=== PATIENT | male | born 1940 | race Caucasian/White ===

== ENCOUNTER 2017-10-13 08:27 | Day surgery (SDC) | payer MEDICARE, OTHER ==
[~2017-10-13] VITALS: Ht 167.6 cm; Wt 93.4 kg
[~2017-10-13 08:27] MED LIST: ALLOPURINOL300 MG PO; DOXYCYCLINE HY100 MG PO; FISH OIL 1,0001 EAC3 PO; GINKGO60 MG PO; INDOMETHACIN25 MG PO; MAGNESIUM250 M1 PO; MELATONIN1 MG PO; METHYLPREDNISOLO4 M1 PO; METOPROLOL SUCC25 MG PO; METOPROLOL SUCC50 MG PO; WARFARIN SODIUM5 MG PO
--- NOTE | 2017-10-13 10:54 | NUR ---
10/13/17 1054 Yasmin Grady 1046 PATIENT ARRIVES TO PACU SLEEPING, AWAKENS WITH VERBAL STIMULI, DENIES PAIN OR NAUSEA, THEN BACK TO SLEEP. RESP EVEN AND UNLABORED, NC AT 3 LITERS.
--- NOTE | 2017-10-16 08:29 | OR ---
[facility] [address] [place], [place] [address] Signed DATE OF OPERATION: 10/13/2017 SURGEON: Alisa Tirado MD PREOPERATIVE DIAGNOSES: 1. Personal history of multiple colonic polyps. 2. Moderate internal and external hemorrhoids. 3. Moderate diverticulosis. 4. Father with colon cancer, age 87. POSTOPERATIVE DIAGNOSES: 1. Polyps at 8 cm x7, 10 cm x4, 55 cm x1, proximal transverse colon x1, mid right colon x4, cecum x3, and hepatic flexure x1. 2. Moderate internal and external hemorrhoids. 3. Moderate sigmoid diverticulosis. PROCEDURE: Colonoscopy with hot biopsy and snare polypectomy at 55 cm. ESTIMATED BLOOD LOSS: None. INDICATIONS: Pierre is a 77-year-old gentleman, who has a personal history of multiple colonic polyps removed over multiple colonoscopies. He is also known to have sigmoid diverticulosis along with internal and external hemorrhoids. In addition, his father was diagnosed with colon cancer at age 87. Pierre continues to do well. He does have atrial fibrillation for which he takes Coumadin. Otherwise, he has good muscle mass and he still has good functional status. In the office, I explained to Pierre it is probably wylie to go ahead and repeat his colonoscopy at his age given the above findings. I gave him a pamphlet on colonoscopy. We looked at that together along with the risks including, but not limited to, gas bloating, crampy abdominal pain, bleeding, perforation, requiring surgery, and missed diagnosis. We also reviewed the written instructions for the bowel prep. We had him hold the Coumadin 4 days prior to the procedure. In addition, he understands the need for IV conscious sedation. He had expressed understanding and wished to proceed. PROCEDURE NOTE: Pierre was taken into our endoscopy suite and placed in the left lateral decubitus position. He was given 5 mg of Versed and 125 mcg of fentanyl to cover the case. A Electronically Signed By: ALISA TIRADO MD 10/16/17 0829 PATIENT NAME: PIERRE MCNAIR OPERATIVE REPORT DATE OF : 40 REPORT #: [id number] PHYSICIAN: ALISA TIRADO MD PCP: ALDEN BECKHAM DO REPORT IS CONFIDENTIAL AND NOT TO BE RELEASED WITHOUT AUTHORIZATION [facility] [address], [place] [address] Signed digital rectal exam was performed. He does have some external hemorrhoids. The adult colonoscope was then introduced and advanced all around into the cecum under direct visualization of camera without difficulty. His prep was good. The scope was then slowly withdrawn. All the above polyps were removed with the help of hot biopsy forceps. We did use our snare at 55 cm to help remove a polyp. He also has some diverticulosis. Upon retroflexion of the scope, he does have a little bit internal hemorrhoid tissue as well. After this, the gas was suctioned out and the colonoscope removed. Pierre tolerated the procedure quite well. RECOMMENDATIONS: I will see Pierre back in my office in 7 to 14 days to review his results. He can resume his Coumadin in 7 days. His other medications can be resumed today. His aspirin can be resumed in 7 days as well. Alisa Tirado MD ALB/MODL /[id number] cc: MD Alden Nicholson DO Copies: ALISA TIRADO MD, ARIAN DO ~ Electronically Signed By: ALISA TIRADO MD 10/16/17 0829 PATIENT NAME: PIERRE MCNAIR OPERATIVE REPORT DATE OF : 40 REPORT #: [id number] PHYSICIAN: ALISA TIRADO MD PCP: ALDEN BECKHAM DO REPORT IS CONFIDENTIAL AND NOT TO BE RELEASED WITHOUT AUTHORIZATION
== END 2017-10-13 11:30 | disposition home or self-care (01) ==
LOC: OPS 08:27 → DS 08:27 → OPS 10:00 → DS 10:00 → OPS 11:30
PROVIDERS: Colon & Rectal Surgery
PROC: 0DBH8ZX Excision of Cecum, Via Natural or Artificial Opening Endoscopic, Diagnostic (ICD-10-PCS; 2017-10-13)
PROC: 0DBL8ZX Excision of Transverse Colon, Via Natural or Artificial Opening Endoscopic, Diagnostic (ICD-10-PCS; 2017-10-13)
PROC: 0DBF8ZX Excision of Right Large Intestine, Via Natural or Artificial Opening Endoscopic, Diagnostic (ICD-10-PCS; 2017-10-13)
PROC: 0DBE8ZX Excision of Large Intestine, Via Natural or Artificial Opening Endoscopic, Diagnostic (ICD-10-PCS; principal; 2017-10-13 10:00)
DX: Z12.11 Encounter for screening for malignant neoplasm of colon (principal); D12.3 Benign neoplasm of transverse colon; D12.0 Benign neoplasm of cecum; D12.6 Benign neoplasm of colon, unspecified; D12.2 Benign neoplasm of ascending colon; K63.5 Polyp of colon; K57.30 Diverticulosis of large intestine without perforation or abscess without bleeding; K64.4 Residual hemorrhoidal skin tags; K64.8 Other hemorrhoids; H91.90 Unspecified hearing loss, unspecified ear; I48.91 Unspecified atrial fibrillation; I12.9 Hypertensive chronic kidney disease with stage 1 through stage 4 chronic kidney disease, or unspecified chronic kidney disease; N18.3 Chronic kidney disease, stage 3 (moderate); E78.5 Hyperlipidemia, unspecified; F41.9 Anxiety disorder, unspecified; Z86.010 Personal history of colon polyps; Z98.890 Other specified postprocedural states; Z87.891 Personal history of nicotine dependence; Z88.5 Allergy status to narcotic agent; Z88.8 Allergy status to other drugs, medicaments and biological substances; Z79.899 Other long term (current) drug therapy
CPT/HCPCS: 88305; 99153; G0500; J2250; J3010; J7120

== ENCOUNTER 2019-05-18 12:01 | Emergency (ER) | payer MEDICARE, OTHER ==
[~2019-05-18] VITALS: Ht 167.6 cm; Wt 93.4 kg
[~2019-05-18 12:01] MED LIST changes: -FISH OIL 1,0001 EAC3 PO; +FISH OIL 1,2001 EAC1 PO
--- NOTE | 2019-05-18 17:59 | EKG ---
[facility] [address] [facility] [place] [address] Signed Atrial fibrillation with rapid ventricular response Abnormal ECG No previous ECGs available Confirmed by RAPHAEL BUSTILLO MD ([id number]) on 05/18/2019 5:59:25 PM Electronically Signed By: RAPHALE BUSTILLO MD 05/18/19 1759 PATIENT NAME: PETER MCNAIR Electrocardiogram DATE OF : 40 PHYSICIAN: RAPHAEL BUSTILLO MD REPORT #: [id number] REPORT IS CONFIDENTIAL AND NOT TO BE RELEASED WITHOUT AUTHORIZATION
== END 2019-05-18 16:04 | disposition home or self-care (01) ==
LOC: ED 12:01
DX: M54.2 Cervicalgia (principal); M54.5 Low back pain; I48.91 Unspecified atrial fibrillation; Z87.891 Personal history of nicotine dependence; Z88.5 Allergy status to narcotic agent; Z88.8 Allergy status to other drugs, medicaments and biological substances; Z79.01 Long term (current) use of anticoagulants; Z79.899 Other long term (current) drug therapy
CPT/HCPCS: 72070; 72100; 72125; 80053; 81001; 85025; 85610; 93005; 93010; 99285-25

== ENCOUNTER 2020-08-10 12:21 | Emergency (ER) | payer MEDICARE ==
[~2020-08-10] VITALS: Ht 167.6 cm; Wt 93.4 kg
[~2020-08-10 12:21] MED LIST changes: +DILTIAZEM HCL60 MG PO; +GABAPENTIN100 MG PO; +LORATADINE10 MG PO; +METOPROLOL TART50 MG PO; +WARFARIN SODIUM4 MG PO
[2020-08-10] MEDS ORDERED: VALACYCLOVIR1000 MG PO (12:36)
[2020-08-10] MEDS ORDERED: PREDNISONE20 MG PO (12:36)
== END 2020-08-10 13:00 | disposition home or self-care (01) ==
LOC: ED 12:21
DX: G51.0 Bell's palsy (principal); Z87.891 Personal history of nicotine dependence; Z88.5 Allergy status to narcotic agent; Z88.8 Allergy status to other drugs, medicaments and biological substances; Z79.899 Other long term (current) drug therapy; Z79.01 Long term (current) use of anticoagulants
CPT/HCPCS: 99284

== ENCOUNTER 2021-01-28 15:43 | Emergency (ER) | payer MEDICARE ==
[~2021-01-28] VITALS: Ht 167.6 cm; Wt 93.4 kg
[~2021-01-28 15:43] MED LIST changes: +PREDNISONE20 MG PO; +VALACYCLOVIR1000 MG PO
[2021-01-28] MEDS ORDERED: CLOBETASOL PROP15 G1 TOP (16:08)
--- NOTE | 2021-01-28 18:09 | EKG ---
[facility] [address] [facility] [place] [address] Signed Atrial fibrillation with slow ventricular response Right bundle branch block Possible Inferior infarct , age undetermined Abnormal ECG When compared with ECG of 18-MAY-2019 12:56, Vent. rate has decreased BY 44 BPM Right bundle branch block is now present Borderline criteria for Inferior infarct are now present Confirmed by DEMETRA FIORE MD ([id number]) on 01/28/2021 6:09:20 PM Electronically Signed By: DEMETRA FIORE MD 01/28/21 1809 PATIENT NAME: PETER MCNAIR Electrocardiogram DATE OF : 40 PHYSICIAN: DEMETRA FIORE MD REPORT #: [id number] REPORT IS CONFIDENTIAL AND NOT TO BE RELEASED WITHOUT AUTHORIZATION
== END 2021-01-28 18:20 | disposition home or self-care (01) ==
LOC: ED 15:43
DX: R55 Syncope and collapse (principal); Z87.891 Personal history of nicotine dependence; Z88.5 Allergy status to narcotic agent; Z88.8 Allergy status to other drugs, medicaments and biological substances; Z79.899 Other long term (current) drug therapy; Z79.01 Long term (current) use of anticoagulants
CPT/HCPCS: 80053; 83735; 84484; 85025; 93005; 93010; 99284-25

== ENCOUNTER 2021-05-01 14:23 | Emergency (ER) | payer MEDICARE ==
[~2021-05-01] VITALS: Ht 167.6 cm; Wt 93.4 kg
[~2021-05-01 14:23] MED LIST changes: +CLOBETASOL PROP15 G1 TOP
[2021-05-01] MEDS ORDERED: MOXIFLOXACIN3 ML OP (17:14)
[2021-05-03] MEDS ORDERED: PROVENTIL HFA6.7 GM INH (17:24)
[2021-05-03] MEDS ORDERED: PREDNISONE20 MG PO (17:24)
== END 2021-05-01 17:27 | disposition home or self-care (01) ==
LOC: ED 14:23
DX: H10.9 Unspecified conjunctivitis (principal); G51.0 Bell's palsy; Z87.891 Personal history of nicotine dependence; Z86.73 Personal history of transient ischemic attack (TIA), and cerebral infarction without residual deficits; Z88.5 Allergy status to narcotic agent; Z88.2 Allergy status to sulfonamides; Z79.899 Other long term (current) drug therapy; Z79.01 Long term (current) use of anticoagulants
CPT/HCPCS: 99283

== ENCOUNTER 2022-11-18 12:26 | Emergency (ER) | payer OTHER, MEDICARE ==
[~2022-11-18] VITALS: Ht 167.6 cm; Wt 93.4 kg
[~2022-11-18 12:26] MED LIST changes: +MOXIFLOXACIN3 ML OP; +PROVENTIL HFA6.7 GM INH
[2022-11-18] MEDS ORDERED: AMOX TR-K CLV1 EAC1 PO (15:02)
== END 2022-11-18 15:40 | disposition home or self-care (01) ==
LOC: ED 12:26
DX: S61.451A Open bite of right hand, initial encounter (principal); Z87.891 Personal history of nicotine dependence; Z88.5 Allergy status to narcotic agent; Z88.8 Allergy status to other drugs, medicaments and biological substances; Z79.52 Long term (current) use of systemic steroids; Z79.899 Other long term (current) drug therapy; Z79.01 Long term (current) use of anticoagulants; W54.0XXA Bitten by dog, initial encounter
CPT/HCPCS: 90715

== ENCOUNTER 2023-05-22 18:51 | Observation (INO) | payer OTHER, MEDICARE ==
[~2023-05-22] VITALS: Ht 170.2 cm; Wt 91.9 kg
[~2023-05-22 18:51] MED LIST changes: +AMOX TR-K CLV1 EAC1 PO; -LORATADINE10 MG PO; +MAGNESIUM OXID420 MG PO; -MAGNESIUM250 M1 PO; -METOPROLOL TART50 MG PO; +TOPROL XL25 MG PO; +ZYRTEC10 MG PO
[2023-05-22 19:07] LABS: BASOPHILS 1.2 % (0-2); EOSINOPHILS 1.6 % (0-6); HEMATOCRIT 44.9 % (35.0-50.0); HEMOGLOBIN 15.2 g/dL (12.0-18.0); LYMPHOCYTES 37.7 % (24-44); MCH 29.8 (27-36); MCHC 33.9 g/dl (30-36); MCV 87.9 fl (81-99); MONOCYTES 7.2 % (0-12); NEUTROPHILS 52.3 % (39-80); PLATELET COUNT 167 K/uL (140-440); RDW 15.4 (10.5-15.0)
[2023-05-22 19:23] LABS: ALBUMIN 3.7 g/dL (3.4-5.0); ALBUMIN/GLOBULIN RATIO 0.95 (1.1-2.4); ALCOHOL, MEDICAL <3 ng/dL (<3); ALKALINE PHOSPHATASE 62 U/L (46-116); ALT (SGPT) 20 U/L (14-59); ANION GAP 10.8 (7-21); AST (SGOT) 12 U/L (15-37); BILIRUBIN, TOTAL 0.7 ng/dL (0.2-1.0); BUN/CREATININE RATIO 11.61 (6.0-28.6); CALCIUM 9.1 mg/dL (8.5-10.1); CARBON DIOXIDE 29 mmol/L (21-32); CHLORIDE 103 mmol/L (98-107); CREATINE KINASE 42 U/L (39-308); CREATININE, SERUM 1.55 mg/dL (0.70-1.30); GLOMERULAR FILTRATION RATE,EST 44 mL/min (>60); POTASSIUM 4.8 mmol/L (3.5-5.1); PROTEIN, TOTAL 7.6 g/dL (6.4-8.2); UREA NITROGEN 18 mg/dL (7-18)
[2023-05-22 19:32] LABS: AMYLASE 46 U/L (25-115)
[2023-05-22 20:47] LABS: ABO A; RH POSITIVE
[2023-05-22 20:49] LABS: ANTIBODY SCREEN NEGATIVE
[2023-05-22 22:33] LABS: BILIRUBIN, URINE NEGATIVE (negative); BLOOD/HGB, URINE NEGATIVE (Negative); KETONE, URINE NEGATIVE (Negative); LEUK ESTERASE, URINE NEGATIVE (negative); NITRITE, URINE NEGATIVE (negative)
[2023-05-22 22:46] LABS: AMPHETAMINES, URINE NEGATIVE (NEGATIVE); BARBITURATES, URINE NEGATIVE (NEGATIVE); BENZODIAZEPINE, URINE NEGATIVE (NEGATIVE); BUPRENORPHINE, URINE NEGATIVE (NEGATIVE); CANNABINOID, URINE NEGATIVE (NEGATIVE); COCAINE, URINE NEGATIVE (NEGATIVE); ECSTASY, URINE NEGATIVE (NEGATIVE); FENTANYL, URINE NEGATIVE (NEGATIVE); METHADONE, URINE NEGATIVE (NEGATIVE); OPIATES, URINE NEGATIVE (NEGATIVE); OXYCODONE, URINE NEGATIVE (NEGATIVE); PHENCYCLIDINE, URINE NEGATIVE (NEGATIVE)
--- NOTE | 2023-05-22 23:04 | NUR ---
[facility] BROUGHT TO FLOOR BY PRIMARY RN VINAYAK. pt SCOOTED SELF OVER TO MS BED, ALARM ON FOR SAFETY. pt VERY KOI, DIFFICULT TO OBTAIN MEDICAL HISTORY, H&P OBTAINED THROUGH RECORDS AND FROM PRIMARY RN VINAYAK. VS COLLECTED AND STABLE. IV SITES X2 WNL, SALINE LOCKED. CALL LIGHT IN REACH, pt HAS MEDICAL RELATED NECKLACE ON. NO ADDITIONAL NEEDS OR CONCERNS.
[2023-05-22 23:07] VITALS: BP 146/55
--- NOTE | 2023-05-22 23:31 | NUR ---
PT ADMITTED FROM THE ER WITH A CONCUSSION AND LEFT EYE LACERATION. VSS. PT VERY HARD OF HEARING. PT STABLE. URINAL AT BEDSIDE. PT ON BEDREST UNTIL PT'S DIZZINESS SUBSIDES. BED ALARM ON. SAFETY PRECAUTIONS MAINTAINED. CALL LIGHT WITHIN REACH. WILL CONTINUE TO MONITOR.
--- NOTE | 2023-05-22 23:35 | NUR ---
1854 LACTIC RESULT WAS 2.3. CALL MADE TO DR RANDLE ON WHETHER MD WANTED ANOTHER LACTIC REDRAWN. VERIFIED VIA READ BACK, NO LACTIC REDRAW NEEDED PER MD. PRIMARY RN VINAYAK DELUNA.
[2023-05-23 01:57] VITALS: BP 144/85
[2023-05-23 05:30] VITALS: BP 134/69
--- NOTE | 2023-05-23 05:57 | NUR ---
PT RESTED WELL DURING THE SHIFT. PT ABLE TO AMBULATE WITH SBA WITH THE BATHROOM. PT STATED THAT THEY HAVE A LITTLE HEADACHE AND A LITTLE DIZZINESS. DRESSING CHANGED ON LEFT EYE. GOOD OUTPUT NOTED. VSS. BED ALARM ON. SAFETY PRECAUTIONS MAINTAINED. CALL LIGHT WITHIN REACH. WILL CONTINUE TO MONITOR.
--- NOTE | 2023-05-23 07:22 | NUR ---
REPORT RECEIVED FROM NORBERTO SIMONS. PT RESTING IN BED ON RIGHT SIDE, WITH EYES CLOSED. RESPIRATIONS EVEN AND UNLABORED. BED RAILS UP. BED ALARM ON. PT ALLOWED TO REST. THIS RN ASSUMING CARE OF PT WITH NORBERTO VÁSQUEZ.
--- NOTE | 2023-05-23 07:26 | NUR ---
REPORT RECIEVED FROM NORBERTO LICEA. ASSUMING CARE OF PT WITH NORBERTO PEGUERO. PT LYING ON RIGHT SIDE RESTING RR 14 EVEN AND UNLABORED. CALL LIGHT WITHIN REACH, BED RAILS UP.
--- NOTE | 2023-05-23 08:53 | NUR ---
MORNING ASSESSMENT DUE. PT SITTING UP IN BED EATING BREAKFAST ALERT AND AWAKE. PT STATES 3/10 PAIN IN L EYE LAC, REQUESTS PAIN MEDICATION, GIVEN (SEE EMAR). R HAND IV AND L HAND IV BOTH ASSESSED, FULSHED, PATENT. PT REPORTS WEAKNES WHEN GETTING UP TO WALK TO RESTROOM. PT AMBULATES TO RESTROOM X1 PERSON ASSIST, STATES HE IS DIZZY FOR "15-20 SECONDS WHEN GETTING UP IN THE MORNING EVERY DAY", PT APPEARS TO BE IMPULSIVE WITH MOVEMENT AND IS NOT COMPLETELY AWARE OF SAFETY HAZARDS. LEFT EYE WOUND ASSESSED, PHOTOGRAPHS TAKEN, MEASURED, REDRESSED. OTHER WOUNDS MEASURED AND PHTOTOGRAPHED. SEE COMPLEX WOUND DOCUMENTATION FOR WOUNDS AND MEASUREMENTS. HX OF AFIB, ON WARFARIN, IRREGULAR HEARTRATE NOTED. PT ALERT AND ORIENTED, VERY HARD OF HEARING. PT REQUESTS SPRITE, GIVEN. PT STATES NO FURTHER NEEDS AT THIS TIME, CALL LIGHT WITHIN REACH, CALL LIGHT EDUCATION PROVIDED, PT VERBALIZES UNDERSTANDING. PT UP TO CHAIR. EDUCATION PROVIDED ON PLAN OF CARE, PT VERBALIZES UNDERSTANDING.
[2023-05-23 09:42] VITALS: BP 138/79
--- NOTE | 2023-05-23 11:01 | NUR ---
MARIELENA RN SPOKE WITH PT'S KATHI ON THE TELEPHONE FOR UPDATE AT 1025, KATHI VERBALIZES UNDERSTANDING AND THAT HER QUESTIONS WERE ANSWERED. PT UP TO CHAIR RESTING WITH EYES CLOSED, RR 24 EVEN AND UNLABORED. CALL LIGHT WITHIN REACH, FALL PRECAUTIONS IN PLACE.
--- NOTE | 2023-05-23 12:10 | NUR ---
PT UP TO CHAIR RESTING WITH EYES CLOSED, RESPIRATIONS EVEN AND UNLABORED. PT AWAKENS TO TOUCH, PT STATES PAIN IS "PRETTY MUCH GONE NOW" AND RATES PAIN 2/10. PT UPDATED ON PLAN OF CARE AND VERBALIZES UNDERSTANDING. PT STATES NO FURTHER NEEDS AT THIS TIME, CALL LIGHT WITHIN REACH.
--- NOTE | 2023-05-23 13:01 | NUR ---
PT UP TO CHAIR WATCHING TV. PT STATES PAIN IS "PRETTY MUCH GONE COMPLETELY, MAYBE A 1/10", NO PAIN MEDICATION REQUESTED. PT STATES NO FURTHER NEEDS AT THIS TIME. CALL LIGHT WITHIN REACH.
--- NOTE | 2023-05-23 14:08 | NUR ---
DISCHARGE NOTE. PT UP TO CHAIR, STATES KATHI IS GOING TO BE PICKING HIM UP, KATHI CALLED BY NORBERTO PEGUERO. KATHI STATES THAT PT'S DAUGHTER IS COMING TO PICK HIM UP. DISCHARGE VITAL SIGNS STABLE. PT DRESSED INDEPENDENTLY, AMBULATES WITH FWW. PATIENT LEAVING WITH ALL PERSONAL BELONGINGS, (SEE PERSONAL BELONGINGS NOTE). BOTH IVs DC'D WNL BY NORBERTO PEGUERO. SKIN NOT IN "GOOD" CONDITION PER DC SUMMARY, WOUNDS ARE STABLE FOR DC, EDUCATION COMPLETED AND PT VERBALIZES UNDERSTANDING (SEE COMPLEX WOUND ASSESSMENT). GAUZE AND TAPE SENT HOME WITH PT FOR DRESSING CHANGES AND PT EDUCATION PROVIDED ON WOUND DRESSING, PT VERBALIZES UNDERSTANDING.PT AMBULATES INDEPENDENTLY WITH FWW TO WHEELCHAIR, PT WHEELED TO FRONT OF BUILDING.
[2023-05-23 14:11] VITALS: BP 118/69
[2023-05-23] MEDS ORDERED: ELIQUIS5 MG PO (14:31)
[2023-05-23] MEDS ORDERED: BETAMETHASONE D15 G3 TOP (14:33)
[2023-05-23] MEDS ORDERED: CARBOXYMETHYLCE15 ML OU (14:34)
[2023-05-23] MEDS ORDERED: ARTIFICIAL TEAR15 M6 OU (14:34)
[2023-05-23] MEDS ORDERED: VITAMIN D350 MC3 PO (14:36)
[2023-05-23] MEDS ORDERED: CELEXA20 MG PO (14:36)
[2023-05-23] MEDS ORDERED: ALA-CORT28.4 GM TOP (14:37)
[2023-05-23] MEDS ORDERED: MUPIROCIN22 GM TOP (14:40)
--- NOTE | 2023-05-23 14:40 | NUR ---
CALL PLACED TO PTS FAMILY AND LISANDRO, WHO ARE UPDATED ON PT STATUS AND PLAN FOR DISCHARGE. DISCHRAGE INSTRUCTIONS REVIEWED IN DETAIL WITH PTS AND WITH PT. BOTH VERBALIZES UNDERSTANDING OF ALL INSTRUCTIONS AND STATES THEIR QUESTIONS HAVE BEEN ANSWERED. AWAITING FINAL MEDICATION RECONCILLIATION FROM PHARAMCY AND PT WILL BE DISCHRAGED.
[2023-05-23] MEDS ORDERED: ZYRTEC10 MG PO (14:47)
[2023-05-23] MEDS ORDERED: MAGNESIUM OXID420 MG PO (14:47)
[2023-05-23] MEDS ORDERED: TOPROL XL25 MG PO (14:47)
--- NOTE | 2023-05-23 14:51 | NUR ---
PAPERWORK FINALIZED BY PHARMACIST. REVIEWED AGAIN WITH PT. PT REPORTS ALL HIS QUESTIONS HAVE BEEN ANSWERED. NO ADDITIONAL REQUESTS OR CONCERNS. PT WHEELED FROM MED/SURG.
--- NOTE | 2023-05-23 14:51 | NUR ---
MED REC COMPLETE
--- NOTE | 2023-06-15 11:01 | NUR ---
Attempt callback, no answer. Message left.
--- NOTE | 2023-06-23 12:25 | NUR ---
Attempt callback, no answer.
== END 2023-05-23 14:50 | disposition home or self-care (01) ==
LOC: ED 18:51 → MS 18:52
PROVIDERS: Emergency Medicine; ADMIT Family Medicine; ATTEND Family Medicine
PROC: 0HQ1XZZ Repair Face Skin, External Approach (ICD-10-PCS; principal; 2023-05-22)
DX: S06.0XAA Concussion with loss of consciousness status unknown, initial encounter (principal); W18.30XA Fall on same level, unspecified, initial encounter; S01.112A Laceration without foreign body of left eyelid and periocular area, initial encounter; Z88.5 Allergy status to narcotic agent; Z11.52 Encounter for screening for COVID-19; Z20.822 Contact with and (suspected) exposure to COVID-19
CPT/HCPCS: 12013; 36415; 70450; 72125; 73140; 80053; 80307; 81003; 82150; 82553; 83605; 83690; 85025; 86850; 86900; 86901; 97161; 99284-25; A9270; G0378; G0480; J7040; U0002

== ENCOUNTER 2024-03-11 13:03 | Emergency (ER) | payer OTHER ==
[~2024-03-11] VITALS: Ht 170.2 cm; Wt 83.5 kg
[~2024-03-11 13:03] MED LIST changes: +ALA-CORT28.4 GM TOP; +ARTIFICIAL TEAR15 M6 OU; +BETAMETHASONE D15 G3 TOP; +CARBOXYMETHYLCE15 ML OU; +CELEXA20 MG PO; +COLCRYS0.6 MG PO; +ELIQUIS5 MG PO; +MUPIROCIN22 GM TOP; +VITAMIN D350 MC3 PO
[2024-03-11] MEDS ORDERED: OXYCODONE HCL 5 MG TAB PO ONE (13:45)
[2024-03-11] MEDS ORDERED: COLCHICINE 0.6 MG TAB PO ONE (14:00)
[2024-03-11] MEDS ORDERED: predniSONE 20 MG TAB PO ONE (14:00)
[2024-03-11] MEDS ORDERED: COLCHICINE0.6 M1 PO (14:04)
[2024-03-11] MEDS ORDERED: ONDANSETRON ODT8 MG PO (14:04)
[2024-03-11] MEDS ORDERED: HYDROCODON-ACE1 EA11 PO (14:04)
[2024-03-11] MEDS ORDERED: PREDNISONE20 MG PO (14:04)
[2024-03-11 14:20] VITALS: BP 125/78
== END 2024-03-11 14:20 | disposition home or self-care (01) ==
LOC: ED 13:03
DX: M10.9 Gout, unspecified (principal); F03.90 Unspecified dementia, unspecified severity, without behavioral disturbance, psychotic disturbance, mood disturbance, and anxiety; I10 Essential (primary) hypertension; Z87.891 Personal history of nicotine dependence; Z88.5 Allergy status to narcotic agent; Z88.8 Allergy status to other drugs, medicaments and biological substances; Z79.01 Long term (current) use of anticoagulants; Z79.899 Other long term (current) drug therapy
CPT/HCPCS: 99283; A9270; J7512

== ENCOUNTER 2024-10-12 15:02 | Inpatient (IN) | payer OTHER ==
[~2024-10-12] VITALS: Ht 170.2 cm; Wt 83.0 kg
[~2024-10-12 15:02] MED LIST changes: +COLCHICINE0.6 M1 PO; +HYDROCODON-ACE1 EA11 PO; -MUPIROCIN22 GM TOP; +ONDANSETRON ODT8 MG PO
[2024-10-12] MEDS ORDERED: MORPHINE SULFATE 4 MG/ML VIAL IV ONE (17:15)
[2024-10-12 17:50] LABS: BASOPHILS 1.2 % (0-2); EOSINOPHILS 7.4 % (0-6); HEMATOCRIT 39.4 % (35.0-50.0); HEMOGLOBIN 13.5 g/dL (12.0-18.0); MCHC 34.2 g/dl (30-36); MCV 84.7 fl (81-99); MONOCYTES 7.3 % (0-12); NEUTROPHILS 68.1 % (39-80); PLATELET COUNT 171 K/uL (140-440); RBC 4.66 M/ul (4.3-5.7); RDW 16.6 (10.5-15.0)
[2024-10-12 18:20] LABS: ALBUMIN 3.6 g/dL (3.4-5.0); ALBUMIN/GLOBULIN RATIO 0.9 (1.1-2.4); ANION GAP 9.8 (7-21); BILIRUBIN, TOTAL 0.9 mg/dL (0.2-1.0); BUN/CREATININE RATIO 13.43 (6.0-28.6); CREATININE, SERUM 1.34 mg/dL (0.70-1.30); POTASSIUM 3.8 mmol/L (3.5-5.1); PROTEIN, TOTAL 7.6 g/dL (6.4-8.2)
[2024-10-13] MEDS ORDERED: MORPHINE SULFATE 4 MG/ML VIAL IV ONE (11:30)
[2024-10-13] MEDS ORDERED: COLCHICINE 0.6 MG TAB PO ONE ×2 (12:15→13:30)
[2024-10-13] MEDS ORDERED: ondansetron HCL 4 MG/2 ML VIAL IV PRN ×2 (15:45→19:30)
[2024-10-13] MEDS ORDERED: MORPHINE SULFATE 4 MG/ML VIAL IV PRN (15:45)
[2024-10-13] MEDS ORDERED: ACETAMINOPHEN 325 MG TAB PO PRN ×2 (15:45→19:30)
[2024-10-13 15:56] LABS: CRYSTALS, SYNOVIAL FLUID NEGATIVE; RBC, SYOVIAL FLUID 748000; VISCOSITY, SYNOVIAL FLUID VISCOUS; WBC, SYNOVIAL FLUID 11500
[2024-10-13 15:57] LABS: MONONUCLEAR CELLS, SYNOVIAL FL 7; PMNS, SYNOVIAL FLUID 93
--- NOTE | 2024-10-13 16:25 | NUR ---
PT TO ROOM VIA STRETCHER FROM OR. REPORT RECEIVED FROM RUBA THORNTON. PT EXTREMELY [place], USING CLIPBOARD TO WRITE ON TO COMMUNICATE. PT ALERT, BED ALARM ON.
[2024-10-13 16:41] VITALS: BP 144/67
[2024-10-13 18:09] VITALS: BP 137/64
--- NOTE | 2024-10-13 18:34 | NUR ---
PT RESTING IN BED WITH EYES CLOSED AND RESPIRATIONS EVEN AND UNLABORED. BED ALARM ON AND CALL LIGHT WITHIN REACH. UNABLE TO COMPLETE MEDICAL HISTORY WITHOUT FAMILY ASSISTANCE.
[2024-10-13 18:39] VITALS: BP 137/64
--- NOTE | 2024-10-13 19:25 | NUR ---
REPORT RECEIVED FROM DAYSHIFT NURSE. PATIENT RESTING IN BED, NO NEEDS IDENTIFIED. CALL LIGHT IN REACH.
--- NOTE | 2024-10-13 20:50 | NUR ---
PATIENT RESTING IN BED, DENIES ANY NEEDS. ASSESSMENT COMPLETE. CALL LIGHT IN REACH, PATIENT DEMONSTRATED TO RN THAT HE KNOWS HOW TO USE IT.
[2024-10-13 20:54] VITALS: BP 141/54
--- NOTE | 2024-10-13 20:56 | NUR ---
TYPO MACHINE OPERATOR OBTAINED VITALS AND I&O. PT STATES NO NEEDS AT THIS TIME. CALL LIGHT WITHIN REACH AND BED ALARM ON.
--- NOTE | 2024-10-13 22:18 | NUR ---
CALL LIGHT ANSWERED. PATIENT REQUESTED ROOM LIGHT OUT AND FRESH BLANKET. DENIES ANY FURTHER NEEDS. CALL LIGHT IN REACH.
--- NOTE | 2024-10-13 23:22 | NUR ---
PATIENT CALLED FOR UPDATE. UPDATE PROVIDED. SHE PLANS TO COME AND VISIT IN THE MORNING.
--- NOTE | 2024-10-13 23:52 | NUR ---
PATIENT REQUESTED PRN MEDICATION FOR 710 LEFT KNEE PAIN. MEDICATION ADMINISTERED. FRESH WATER PROVIDED, PATIENT DENIES FURTHER NEEDS. CALL LIGHT IN REACH.
--- NOTE | 2024-10-14 01:32 | NUR ---
PATIENT RESTING IN BED WITH EYES CLOSED. RESP. EVEN AND UNLABORED. NO NEEDS IDENTIFIED, CALL LIGHT IN REACH.
[2024-10-14 01:37] VITALS: BP 160/75
[2024-10-14 01:41] VITALS: BP 160/75
--- NOTE | 2024-10-14 01:41 | NUR ---
PATIENT AWAKE, VS OBTAINED AND RECORDED. PATIENT DENIES FURTHER NEEDS. CALL LIGHT IN REACH.
--- NOTE | 2024-10-14 03:03 | NUR ---
PATIENT WOKE TO RN ENTERING ROOM. DENIES ANY NEEDS. CALL LIGHT IN REACH.
[2024-10-14 05:49] VITALS: BP 139/70
--- NOTE | 2024-10-14 05:50 | NUR ---
OPEN HEARTH FURNACE OPERATOR AND RN OBTAINED VITALS AND I&O. PT STATES NO FURTHER NEEDS AT THIS TIME. CALL LIGHT WITHIN REACH AND BED ALARM ON.
[2024-10-14 05:52] LABS: EOSINOPHILS 4.9 % (0-6); HEMATOCRIT 36.2 % (35.0-50.0); HEMOGLOBIN 12.5 g/dL (12.0-18.0); LYMPHOCYTES 23.6 % (24-44); MCH 29.1 (27-36); MCHC 34.7 g/dl (30-36); MCV 83.8 fl (81-99); MONOCYTES 10.2 % (0-12); NEUTROPHILS 60.3 % (39-80); PLATELET COUNT 146 K/uL (140-440); RBC 4.32 M/ul (4.3-5.7); RDW 15.8 (10.5-15.0)
[2024-10-14 06:02] LABS: ANION GAP 10.5 (7-21); BUN/CREATININE RATIO 11.81 (6.0-28.6); CALCIUM 8.8 mg/dL (8.5-10.1); CREATININE, SERUM 1.1 mg/dL (0.70-1.30); MAGNESIUM 1.7 mg/dL (1.8-2.4); POTASSIUM 3.5 mmol/L (3.5-5.1)
[2024-10-14] MEDS ORDERED: MAGNESIUM SULFATE 2 GM/50 ML BAG IV ONE (07:45)
--- NOTE | 2024-10-14 08:11 | NUR ---
UR CLINICAL REVIEW: [facility], MEETS INPT FOR MUSCULOSKELETAL DISEASE GRG MODERATE TO LARGE LEFT KNEE EFFUSION, ARTHOCENTESIS REQUIRED. INABILITY TO AMBULATE. [facility] INPT 10/13/2024 @ 1928 ORDER MATCHES REG AUTH PENDING, WILL SEND CLINICALS FOR REVIEW. DC PLAN PENDING FURTHER EVAL AND TREATMENT 10/16/24
--- NOTE | 2024-10-14 08:48 | NUR ---
Patient awake, alert to self and place, he is hard of hearing. Patient eating breakfast, tolerating well. IV mag started per order. Patient close to rN station. Bed alarm intact.
[2024-10-14] MEDS ORDERED: METOPROLOL SUCCINATE 25 MG TABCR PO SCH (09:00)
[2024-10-14] MEDS ORDERED: MAGNESIUM OXIDE 400 MG TABLET PO SCH (09:00)
[2024-10-14] MEDS ORDERED: CITALOPRAM HYDROBROMIDE 20 MG TAB PO SCH (09:00)
[2024-10-14] MEDS ORDERED: COLCHICINE 0.6 MG TAB PO SCH (09:45)
--- NOTE | 2024-10-14 09:54 | NUR ---
PATIENT IN BED AT THIS TIME. THIS CARDIOLOGY TEACHER AND OCCUPATIONAL THERAPIST CHANGED PATIENTS CHUX, BREIF, AND GOWN. CALL LIGHT WTIHIN REACH, NO FURTHER NEEDS AT THIS TIME.
--- NOTE | 2024-10-14 10:00 | NUR ---
Spoke with Pierre and was able to obtain inform from OT. Pt lives at home with his and other adult family member. plans on pt discharging to home when able. Pt uses 4ww. He has 2 steps and 0 hand rails. Pt has grab bars in the room. Pt denies needs and is a . Pt will need eval by ortho.
[2024-10-14] MEDS ORDERED: ZYLOPRIM100 MG PO (10:04)
[2024-10-14 10:19] VITALS: BP 120/82
--- NOTE | 2024-10-14 10:23 | NUR ---
PATIENT IS IN BED AT THIS TIME, MECHANICAL PROCESS ENGINEER ASSISTED PATIENT WITH RR/URINAL CHECKED BREIF AND PATIENT WAS CLEAN. MECHANICAL PROCESS ENGINEER CHARTED VITALS AND I&O'S, CALL LIGHT WITH IN REACH AND NOTHING ELSE NEEDED AT THIS TIME.
[2024-10-14] MEDS ORDERED: LIPITOR40 MG PO (10:57)
[2024-10-14] MEDS ORDERED: ZYRTEC10 MG PO (10:58)
[2024-10-14] MEDS ORDERED: PLAVIX75 MG PO (11:17)
[2024-10-14] MEDS ORDERED: COLCRYS0.6 MG PO ×2 (11:19→13:43)
[2024-10-14] MEDS ORDERED: EUCERIN SKIN C396 GM TOP (11:20)
[2024-10-14] MEDS ORDERED: NITROSTAT0.4 MG SL (11:21)
[2024-10-14] MEDS ORDERED: REFRESH LACRI-3.5 GM OU (11:23)
[2024-10-14] MEDS ORDERED: OMEPRAZOLE20 MG PO (11:23)
--- NOTE | 2024-10-14 11:35 | NUR ---
Updated Liza, patient's via phone regarding patient status. All questions answered at this time. Per Liza, she will be in to see patient later this afternoon.
[2024-10-14] MEDS ORDERED: PHARMACY RENAL DOSE ADJUSTMENT 1 DOSE MISC PO SCH (12:00)
[2024-10-14] MEDS ORDERED: MUPIROCIN22 GM TOP (12:37)
--- NOTE | 2024-10-14 12:38 | NUR ---
MED REC COMPLETE
--- NOTE | 2024-10-14 13:49 | NUR ---
SPOKE WITH DAUGHTER, ELAINE, REGARDING DC TO HOME. PATIENT WILL NEED WHEELCHAIR VAN TRANSPORT. REQUEST DAUGHTER ENSURE THE WHEELCHAIR IS RETURNED TO THE [place] PRIOR TO THEM LEAVING SO THEY MAY RETURN WHEELCHAIR. NO OTHER NEEDS AT THIS TIME.
--- NOTE | 2024-10-14 14:39 | NUR ---
WHEELCHAIR VAN SCHEDULED FOR 3:30. NURSING STAFF AND DAUGHTER, ELAINE, NOTIFIED.
[2024-10-14 14:47] VITALS: BP 143/63
--- NOTE | 2024-10-14 14:50 | NUR ---
PATIENT WAS IN HIS CHAIR AT THIS TIME, WAGE HAND ASSISTED PATIENT TO THE RESTROOM THEN BACK TO BED TO ICE HIS KNEE BEFORE HE LEAVES HOME. WAGE HAND ASSISTED PATIENT IN GETTING DRESSED AND READY. CHARTED VITALS AND I&O'S, GOT AND ICE PACK. CALL LIGHT WITH IN REACH AND NOTHING ELSE NEEDED AT THIS TIME.
--- NOTE | 2024-10-14 14:52 | NUR ---
Patient's updated regarding EMS tansport to home at 1530 this afternoon. Communicated scheduled follow up appt with , she verbalized her understanding of plan.
[2024-10-14 14:53] VITALS: BP 143/63
--- NOTE | 2024-10-14 15:21 | NUR ---
PT NOT AVAILABLE FOR VISIT. PROVIDED PRAYER.
[2024-10-15 16:20] LABS: GLUCOSE FLUID SOURCE Synovial fluid (()); GLUCOSE,BODY FLUID 99 mg/dL (()); RHEUMATOID FACTOR FLUID SOURCE Synovial fluid (()); RHEUMATOID FACTOR, BODY FLUID <10 IU/mL (())
== END 2024-10-14 15:37 | disposition home or self-care (01) | DRG 566 ==
LOC: ED 15:02 → MS 10-13 15:47
PROVIDERS: Emergency Medicine; ADMIT Student in an Organized Health Care Education/Training Program; ATTEND Student in an Organized Health Care Education/Training Program
PROC: 0S9D3ZZ Drainage of Left Knee Joint, Percutaneous Approach (ICD-10-PCS; principal; 2024-10-13)
DX: M25.462 Effusion, left knee (principal); G51.0 Bell's palsy; I48.91 Unspecified atrial fibrillation; F03.90 Unspecified dementia, unspecified severity, without behavioral disturbance, psychotic disturbance, mood disturbance, and anxiety; I10 Essential (primary) hypertension; M10.9 Gout, unspecified; I25.10 Atherosclerotic heart disease of native coronary artery without angina pectoris; F39 Unspecified mood [affective] disorder; E83.42 Hypomagnesemia; I25.2 Old myocardial infarction; Z95.5 Presence of coronary angioplasty implant and graft; Z87.19 Personal history of other diseases of the digestive system; Z87.891 Personal history of nicotine dependence; Z98.42 Cataract extraction status, left eye; Z98.41 Cataract extraction status, right eye; Z88.5 Allergy status to narcotic agent; Z88.8 Allergy status to other drugs, medicaments and biological substances; Z79.52 Long term (current) use of systemic steroids; Z79.899 Other long term (current) drug therapy; Z79.01 Long term (current) use of anticoagulants; W18.39XA Other fall on same level, initial encounter; Y92.009 Unspecified place in unspecified non-institutional (private) residence as the place of occurrence of the external cause; Y93.01 Activity, walking, marching and hiking
CPT/HCPCS: 20610; 36415; 71045; 73560; 73700; 73721; 80048; 80053; 82945; 83735; 85025; 87070; 87205; 89051; 89060; 97110; 97162; 97166; 97530; 97535; 99285-25; A9270; J2270; J3475

== ENCOUNTER 2024-10-14 19:08 | Inpatient (IN) | payer OTHER, MEDICARE ==
[~2024-10-14] VITALS: Ht 170.2 cm; Wt 88.2 kg
[~2024-10-14 19:08] MED LIST changes: +EUCERIN SKIN C396 GM TOP; +LIPITOR40 MG PO; +MUPIROCIN22 GM TOP; +NITROSTAT0.4 MG SL; +OMEPRAZOLE20 MG PO; +PLAVIX75 MG PO; +REFRESH LACRI-3.5 GM OU; +ZYLOPRIM100 MG PO
--- OUTSIDE RECORDS SUMMARY | 2024-10-14 19:15 | XMS ---
PreManage Notification: PETER MCNAIR Security Ager Tender Events No recent Security Events currently on file CRITERIA MET - [facility] - 2 Visits in 30 Days [facility] PHONE: Unknown Angelina has no Care Guidelines for this patient. E.Nakia VISIT COUNT (12 MO.) 5 [facility] TOTAL 5 NOTE: Visits indicate total known visits. ED/UCC VISIT TRACKING (12 MO.) 10/14/2024 19:08 [facility] TYPE: Emergency COMPLAINT: - KNEE PAIN 10/12/2024 15:[address] [facility] [place] TYPE: Emergency COMPLAINT: - FALL 03/11/2024 13:04 [facility] TYPE: Emergency COMPLAINT: - TOE PAIN DIAGNOSES: - Allergy status to narcotic agent - Allergy status to other drugs, medicaments and biological substances - Essential (primary) hypertension - Gout, unspecified - snf (current) use of anticoagulants - Other extermination inspector (current) drug therapy - Pain in left toe(s) - Personal history of nicotine dependence - Unspecified dementia, unspecified severity, without behavioral disturbance, psychotic disturbance, mood disturbance, and anxiety 12/15/2023 13:19 [facility] TYPE: Emergency COMPLAINT: - CHEST PAIN DIAGNOSES: - Allergy status to narcotic agent - Allergy status to other drugs, medicaments and biological substances - Essential (primary) hypertension - extermination inspector (current) use of anticoagulants - Non-ST elevation (NSTEMI) myocardial infarction - Other chest pain - Other extermination inspector (current) drug therapy - Personal history of nicotine dependence 10/27/2023 20:50 [facility] TYPE: Emergency COMPLAINT: - EXTREMITY PAIN DIAGNOSES: - Abnormal results of kidney function studies - Allergy status to narcotic agent - Allergy status to other drugs, medicaments and biological substances - Gout, unspecified - extermination inspector (current) use of anticoagulants - Other correction (current) drug therapy - Pain in left toe(s) - Personal history of nicotine dependence INPATIENT VISIT TRACKING (12 MO.) 10/13/2024 15:47 [facility] TYPE: Medical Surgical COMPLAINT: - LT TRAUMATIC HEMARTHOSIS [facility]23 17[facility]: [facility] DIAGNOSES: - Chronic atrial fibrillation, unspecified - Chronic kidney disease, stage 3a - Gastro-esophageal reflux disease without esophagitis - Non-ST elevation (NSTEMI) myocardial infarction - Unspecified hearing loss, bilateral - NSTEMI [email or web address]
[2024-10-14] MEDS ORDERED: OXYCODONE HCL 5 MG TAB PO PRN (21:00)
[2024-10-14] MEDS ORDERED: ACETAMINOPHEN 325 MG TAB PO PRN (21:00)
[2024-10-14] MEDS ORDERED: ondansetron HCL 4 MG/2 ML VIAL IV PRN (21:00)
[2024-10-14] MEDS ORDERED: MORPHINE SULFATE 4 MG/ML VIAL IV PRN (21:00)
[2024-10-14 21:19] VITALS: BP 141/66
--- NOTE | 2024-10-14 21:53 | NUR ---
2109 - admitted from Er via stretcher, alert and oriented, [place], cooperative with assessments. incontinent of urine in attends, attends changed, stiff LW, painful L knee/leg area more than R. helped with repositioning.. Noother c/o
[2024-10-14 22:05] VITALS: BP 141/66
[2024-10-15] VITALS (12 sets, daily range): BP systolic 124–143; BP diastolic 52–85
--- NOTE | 2024-10-15 00:08 | NUR ---
awakens easily, has used urinal, strong smelling urine. IV site started after 3 tries. all procedures explained prior to, cooperative. IVsite started LAC 20G by Nishi Tavarez RN.
--- NOTE | 2024-10-15 03:15 | NUR ---
resting, eyes closed, no s/s distress
--- NOTE | 2024-10-15 05:37 | NUR ---
Resting, no s/sx dstress, [place], used urinal plus incontinent of urine in attends. lower leg stiffness. 2P heavy assit. Up to BSC earlier on shift, had a bm and has voided QS. edema and tenderness at L knee area. Bed alrm on
--- NOTE | 2024-10-15 05:49 | NUR ---
CAN OBTAINED VITALS AND I&O. URINAL EMPTIED. PT STATES NO NEEDS AT THIS TIME. CALL LIGHT WITHIN REACH AND BED ALARM ON.
--- NOTE | 2024-10-15 06:52 | NUR ---
CALL LIGHT ANSWERED. PT NEEDED TO HAVE BM. BED CONTROL SPECIALIST AND RN LIEN 2PA PIVOT TO BSC. PT HAD BM AND ASSISTED BACK TO BED. PT STATES NO FURTHER NEEDS AT THIS TIME. CALL LIGHT WITHIN REACH AND BED ALARM ON.
[2024-10-15] MEDS ORDERED: ondansetron HCL 4 MG/2 ML VIAL IV PRN (07:00)
[2024-10-15] MEDS ORDERED: ACETAMINOPHEN 325 MG TAB PO PRN (07:00)
--- NOTE | 2024-10-15 07:13 | NUR ---
MED REC COMPLETE
[2024-10-15] MEDS ORDERED: HYDROmorphone HCL 1 MG/ML SYR IV PRN (07:15)
--- NOTE | 2024-10-15 07:20 | NUR ---
GOT REPORT FROM HYBRID POWERTRAIN DEVELOPMENT ENGINEER NURSE.
--- NOTE | 2024-10-15 07:38 | NUR ---
INTO CHECK ON PATIENT. PATIENT GIVEN FRESH WATER AND COFFEE. PATIENT UP WATCHING TV. HOB ELEVATED. PATIENT STATES THE PAIN IS BETTER JUST STIFF IN THE LEG. CALL LIGHT WITHIN REACH, BED IN LOW POSITION.
--- NOTE | 2024-10-15 08:27 | NUR ---
PATIENT GIVEN MORNING MEDICATIONS AND MOVED UP IN BED. PATIENT SET UP AND HAS BREAKFAST AND EATING. PATIENT DENIES NEEDING ANYTHING ELSE. LIGHTS TURNED ON.BED ALARM ON. CALL LIGHT WITHIN REACH.
[2024-10-15] MEDS ORDERED: PANTOPRAZOLE SODIUM 40 MG TABEC PO SCH (09:00)
[2024-10-15] MEDS ORDERED: CLOPIDOGREL BISULFATE 75 MG TAB PO SCH (09:00)
[2024-10-15] MEDS ORDERED: COLCHICINE 0.6 MG TAB PO SCH (09:00)
[2024-10-15] MEDS ORDERED: METOPROLOL SUCCINATE 25 MG TABCR PO SCH ×2 (09:00→12:00)
--- NOTE | 2024-10-15 09:15 | NUR ---
PATIENT UP TO THE BEDSIDE COMMODE TO URINATE. 2PA AT BEDSIDE.
--- NOTE | 2024-10-15 11:15 | NUR ---
PATIENT WATCHING TV. PATIENT DID AMAZING IN PT TODAY. DENIES ANY NEEDS.
[2024-10-15] MEDS ORDERED: PHARMACY RENAL DOSE ADJUSTMENT 1 DOSE MISC PO SCH (12:00)
--- NOTE | 2024-10-15 12:25 | NUR ---
PATIENT RESTING IN BED, REGULAR RESPIRATIONS NOTED.
--- NOTE | 2024-10-15 12:50 | NUR ---
BED ALARM GOING OFF, PATIENT STANDING UP TO GO TO THE BATHROOM.SOFT BOWEL MOVEMENT AND 500 URINE. PATIENT BACK IN BED NOW AND SAYS HE FEELS LOTS BETTER THEN THIS MORNING AND LOVED WORKING WITH PT TODAY.
--- NOTE | 2024-10-15 14:14 | NUR ---
PATIENT BED ALARM GOING OFF, PATIENT IS CURRENTLY JUST A SBA WITH WALKER NOW TO THE BATHROOM. PATIENT DOES IT ALL ON HIS OWN. PATIENT WOULD LIKE TO GO HOME NOW HE SAID SINCE PT AND MOVING HIS LEGS MORE HE FEELS GREAT.
--- NOTE | 2024-10-15 14:51 | NUR ---
REPORT RECEIVED FROM NORBERTO RASMUSSEN. PT RESTING IN BED WATCHING TELEVISION. THIS RN COMMUNICATES VIA CLIPBOARD TO INTRODUCE HERSELF. PT HAS NO REQUESTS AT THIS TIME. BED ALARM ON. CALL LIGHT IN REACH.
--- NOTE | 2024-10-15 15:14 | NUR ---
ASSESSMENT COMPLETE. PT IN BED WATCHING TELEVISION. DENIES ANY PAIN. NOTED GENERALIZED SWELLING TO L KNEE, PT LIFTS L LEG AND BENDS KNEE INDEPENDENTLY AND CONTINUES TO DENY ANY PAIN OR DISCOMFORT. PEDAL PULSES 2+ AND STRONG IN BILAT FEET. NO NUMBNESS OR TINGLING REPORTED. IV TO R AC FLUSHES WNL. LUNG SOUNDS CLEAR THROUGHOUT, HEART SOUNDS HEARD, IRREGULAR - PT HAS AFIB. PT COMMUNICATES READING THIS RNs LIPS AND VOICING HIS RESPONSES. NO REQUESTS AT THIS TIME. BED ALARM ON, BED IN LOWEST POSITION, CALL LIGHT IN REACH.
--- NOTE | 2024-10-15 16:39 | NUR ---
PT REQUESTING BATHROOM USE. PT INDEPENDENTLY SITS ON EDGE OF BED AND STANDS WITH FWW AND NO ASSISTANCE. PT AMBULATES WITH SBA TO RESTROOM. PT REPORTS HIS KNEE IS NOT HURTING IT IS ONLY STIFF. PT SHOWN CALL CORD, STATES HE WILL PULL IT, THEN PROVIDED PRIVACY.
--- NOTE | 2024-10-15 16:51 | NUR ---
THIS RN ESCORTS IN WHEELCHAIR TO FRONT OF HOSPITAL. WHEN RETURNING TO FLOOR, PT IS BACK IN BED. RNs ASHISH, TED, AND YELENA REPORT THAT PT NEVER PULLED THE BATHROOM CORD AND WALKED INDEPENDENTLY BACK TO BED AND TUCKED HIMSELF IN. BED ALARM ON. PT REQUESTING ICE WATER - PROVIDED. NO OTHER REQUESTS, CALL LIGHT IN REACH.
--- NOTE | 2024-10-15 18:49 | NUR ---
PT RESTING IN BED WATCHING TELEVISION. THIS RN GIVES PT THUMBS UP, PT RETURNS AND ALSO WAVES HELLO. BED ALARM ON, BED IN LOWEST POSITION, CALL LIGHT IN REACH.
--- NOTE | 2024-10-15 20:15 | NUR ---
USED CALL LIGHT. UP TO BRP W 1PA/FWW. VOIDED QS AND HAD MEDIUM VERY SOFT BM. DID OWN PERICARE. PULL UPS CHANGED. BACK TO BED, 1PA/FWW, TOLERATED VERY WELL. NO C/O PAIN. COOPERATIVE WITH VITALS AND ASSESSMENTS. ON ROOM AIR, CLEAR LUNGS IRREGULAR HEART RATE. RAC SL PATENT. EDEMA TO L ANKLE NO C/O, HELPED SELF TO BED W/O ASSIT. ELEVATED WITH PILLOWS, BED ALARMS ON FOR FALL PRECAUTIONS. MUCH IMPROVED GAIT AND STAMINE NOTED COMPARED TO YESTERDAY. PLEASANT AND COOPERATIVE, [place]. WRITING PAD AT BEDSIDE. MELATONIN GIVEN ON REQUESTS "I DID NOT SLEPT LAST NIGHT AFTER BEING ADMITTED'. TOLERATING LIQUIDS WELL. C/O 'I DO NOT ADD SALT TO MY FOODS SINCE I HAVE A BAD HEART AND THE KITCHEN KEEPS SENDIN ME SALT WITH EACH MEAL' STATED. DIET CHANGED TO REGULAR LOW SOSIUM. PT INFORMED. WILL INFORM
[2024-10-15] MEDS ORDERED: APIXABAN 5 MG TAB PO SCH (21:00)
[2024-10-15] MEDS ORDERED: MELATONIN 3 MG TAB PO PRN (21:00)
--- NOTE | 2024-10-15 23:40 | NUR ---
RESTING, EYES CLOSED, ON ROOM AIR, LE ELEVATED, BED ALRM INPLCE, FALL PRECAUTIONS
[2024-10-16] VITALS (7 sets, daily range): BP systolic 137–153; BP diastolic 51–69
--- NOTE | 2024-10-16 01:25 | NUR ---
Used call light, up to brp with 1pa/fww, voided very large amounts of clear yellow urine. Back to bed, tolerated well, denies c/o pain as per his words. helped repositioning self in bed, LE elevated, alrms in place. cooperative with second assessment. [place], pleasant and cooperative, very alert
--- NOTE | 2024-10-16 03:52 | NUR ---
resting, eyes closed, no s/sx distress. repositions self in bed. alarms in place fall precautions
[2024-10-16 05:19] LABS: BASOPHILS 0.7 % (0-2); EOSINOPHILS 8.3 % (0-6); HEMATOCRIT 35.4 % (35.0-50.0); HEMOGLOBIN 12.2 g/dL (12.0-18.0); LYMPHOCYTES 27.5 % (24-44); MCH 28.6 (27-36); MCHC 34.4 g/dl (30-36); MCV 83.3 fl (81-99); MONOCYTES 11.3 % (0-12); NEUTROPHILS 52.2 % (39-80); PLATELET COUNT 183 K/uL (140-440); RBC 4.25 M/ul (4.3-5.7)
[2024-10-16 05:31] LABS: ANION GAP 9.1 (7-21); BUN/CREATININE RATIO 16.66 (6.0-28.6); CALCIUM 8.6 mg/dL (8.5-10.1); CREATININE, SERUM 1.02 mg/dL (0.70-1.30); MAGNESIUM 2.2 mg/dL (1.8-2.4); POTASSIUM 4.1 mmol/L (3.5-5.1)
--- NOTE | 2024-10-16 07:19 | NUR ---
GOT REPORT FROM TOW PICKER NURSE.
--- NOTE | 2024-10-16 07:24 | NUR ---
PATIENT CURRENTLY SLEEPING, REGULAR RESPIRATIONS NOTED. LIGHTS TURNED DOWN, TV OFF, BED IN LOW POSTION, CALL LIGHT WITHIN REACH.
--- NOTE | 2024-10-16 07:52 | NUR ---
INTO DO MORNING ASSESSEMENT. PATIENT WAKES UP AT TOUCH OF A HAND FOR HANDCREW FOREMAN TO ALSO GET VITALS. PATIENT DENIES PAIN OR ANY CARES AT THIS TIME. SAYS HE IS DOING GREAT. BED IN LOW POSITION. CALL LIGHT WITHIN REACH.
--- NOTE | 2024-10-16 08:06 | NUR ---
PATIENT GIVEN MORNING MEDICATIONS AND WARM BLANKET. PATIENT HAS WATER AT BEDSIDE TABLE. DENIES ANY OTHER CARES. PATIENT GOING TO GET SOME MORE REST NOW UNTIL BREAKFAST HERE.
--- NOTE | 2024-10-16 09:15 | NUR ---
PATIENT IS LYING IN BED WITH HOB ELEVATED. PATIENT IS FINISHED EATING BREAKFAST. BREAKFAST TRAY REMOVED. PATIENT STATED NO FURTHER NEEDS AT THIS TIME. CALL LIGHT AND PERSONAL BELONGINGS ARE WITHIN REACH.
--- NOTE | 2024-10-16 10:04 | NUR ---
PATIENT SLEEPING WITH TV ON. BED ALARM ON, LOW POSITION. WALKER IN ROOM.
--- NOTE | 2024-10-16 11:01 | NUR ---
PATIENT SLEEPING IN BED, REGULAR RESPIRATIONS NOTED.
--- NOTE | 2024-10-16 12:28 | NUR ---
PATIENT UP TO THE CHAIR FOR LUNCH. PATIENT HAS TV ON AND BED IS CLEANED UP.
--- NOTE | 2024-10-16 13:35 | NUR ---
PATIENT SBA TO THE SHOWER. PATIENT SAT ON SHOWER CHAIR AND DID HIS OWN CHAIR. PATIENT THEN GIVEN NEW GOWN, DEPENDS, AND SOCKS. PATIENT BACK TO BED TO RELAX. HOB ELEVATED.LITTLE HELP GIVEN TO PATIENT FOR THIS CARE. PATIENT STEADY ON FEET WITH WALKER.
--- NOTE | 2024-10-16 13:52 | NUR ---
PATIENTS CALLED. ASKED IF SHE WOULD BE COMING IN TODAY AND SHE SAID SHE DIDNT THINK SHE COULD BUT HER SON WOULD BE. ADVISED HER PER CHART NOTE THAT WOULD LIKE TO TALK TO HER ABOUT HOME AND PT AND HOME HEALTH OR SNF. PATIENTS WOULD MUCH RATHER HAVE HIM HOME IF THATS AN OPTION SINCE HE IS DOING SO MUCH BETTER. ADVISED I WOULD LET KNOW.
--- NOTE | 2024-10-16 14:59 | NUR ---
FAMILY AT BEDSIDE. ADVISED SO HE CAN GO VISIT.
--- NOTE | 2024-10-16 15:34 | NUR ---
DOCTOR INTO VISIT WITH FAMILY. PATIENT SLEEPING WITH REGULAR RESPIRATIONS.
--- NOTE | 2024-10-16 17:10 | NUR ---
PATIENT IS SLEEPING ON HIS RIGHT SIDE, PATIENT LOOKS VERY COMFORTABLE. BED IN LOW POSITION, BED ALARM ON.
--- NOTE | 2024-10-16 17:19 | NUR ---
DINNER IS HERE, PATIENT SAT UP FOR DINNER AND DENIES NEEDING ANYTHING.
--- NOTE | 2024-10-16 21:10 | NUR ---
awake, alert and oriented, makah. writing tablet at bedside. lungs dim at bases, no sob. slight wheezing in throat when repositioning noted and uscultated. abd soft. edema trace to le. sl patent. Medicated with tylenol per slight 3/10 pain L knee, edema L knee no changes. Medicated with Melatonin per insomnia his requests. Watching tv
--- NOTE | 2024-10-16 23:05 | NUR ---
resting, eyes closed, no s/sx distress. alarms in place
--- NOTE | 2024-10-17 02:15 | NUR ---
Resting, in bed, eyes closed, no s/sx distress.
--- NOTE | 2024-10-17 04:20 | NUR ---
Resting, eyes closed, no s/sx distress.
[2024-10-17 05:15] VITALS: BP 126/66
[2024-10-17 05:17] VITALS: BP 126/66
[2024-10-17 05:42] LABS: BASOPHILS 1.8 % (0-2); HEMATOCRIT 38.1 % (35.0-50.0); LYMPHOCYTES 36.5 % (24-44); MCH 28.4 (27-36); MCV 83.6 fl (81-99); NEUTROPHILS 44.7 % (39-80); PLATELET COUNT 200 K/uL (140-440); RBC 4.56 M/ul (4.3-5.7); RDW 15.7 (10.5-15.0)
[2024-10-17 05:51] LABS: ANION GAP 11.9 (7-21); BUN/CREATININE RATIO 17.43 (6.0-28.6); CALCIUM 8.7 mg/dL (8.5-10.1); CREATININE, SERUM 1.09 mg/dL (0.70-1.30); MAGNESIUM 2.1 mg/dL (1.8-2.4); POTASSIUM 3.9 mmol/L (3.5-5.1)
--- NOTE | 2024-10-17 08:00 | NUR ---
REPORT RECEIVED FROM NORBERTO EMMANUEL. PT RESTING IN BED WITH EYES CLOSED. CALL LIGHT IN HAND.
--- NOTE | 2024-10-17 10:27 | NUR ---
PT UP IN CHAIR, ATE BREAKFAST. DENIES PAIN, STATES HE SLEPT WELL AND FEELS PRETTY GOOD TODAY.
--- NOTE | 2024-10-17 10:41 | NUR ---
[facility] [place] FAXED TO MD.
--- NOTE | 2024-10-17 11:15 | NUR ---
ALERT IN RECLINER. DIFFICULTY HEARING, USED PEN AND PAPER TO COMMUNICATE. PATIENT LIVES WITH AND OTHER ADULT FAMILY MEMBERS. HE [facility] "ALMOST MAX ALLOWED [facility]," PER [facility] NURSE. PATIENT HAS A WALKER. HE HAS 2 STEPS TO GET INSIDE WITHOUT A HANDRAIL. HAS GRAB BARS [place]. [facility] [place] [facility] [facility] FOR POTENTIAL INCREASED CAREGIVER HOURS AND HOME HEALTH REFERRAL. HOME HEALTH REFERRAL FAXED TO [facility] [place]. PATIENT STATES HE CURRENTLY HAS NO OTHER CM NEEDS. PLAN TO DC TO HOME.
--- NOTE | 2024-10-17 13:09 | NUR ---
REFERRAL FAXED TO [facility].
--- NOTE | 2024-10-17 13:31 | NUR ---
PT STATES HIS WILL COME GET HIM WHEN THE PAPERWORK WAS DONE.
--- NOTE | 2024-10-17 13:32 | NUR ---
UR CLINICAL REVIEW: MCG-PER [facility]CG REVIEW MEETS INPT FOR SEVERE PAIN REQUIRING INPT CARE [facility] OBS TO INPT 10/16/24 @ 1055 ORDER MATCHES REG CLINICAL FAXED TO [facility] FOR REVIEW DISCHARGE TO HOME WHEN STABLE. ANTICIPATE DC 10/17/24
[2024-10-17 14:21] VITALS: BP 145/73
--- NOTE | 2024-10-17 15:30 | NUR ---
CALLED AND SPOKE WITH ELAINE, DAUGHTER, AND , LISANDRO. INFORMED THEM PATIENT IS READY TO BE DISCHARGED TODAY AND HAS HAD REFERRALS FOR HOME HEALTH SENT TO THE [facility] AND [facility].
--- NOTE | 2024-10-17 15:33 | NUR ---
THIS DEVULCANIZER TENDER IN TO TAKE IV OUT UPON RN REQUEST. CATH INTACT AND LOOKED GOOD, RN NOTIFED. CALL LIGHT IN REACH. NO FURTHER NEEDS AT THIS TIME.
== END 2024-10-17 15:50 | disposition home or self-care (01) | DRG 554 ==
LOC: ED 19:08 → MS 19:09
PROVIDERS: ADMIT Student in an Organized Health Care Education/Training Program; ATTEND Student in an Organized Health Care Education/Training Program
DX: M10.9 Gout, unspecified (principal); I48.91 Unspecified atrial fibrillation; I25.10 Atherosclerotic heart disease of native coronary artery without angina pectoris; E83.42 Hypomagnesemia; F03.90 Unspecified dementia, unspecified severity, without behavioral disturbance, psychotic disturbance, mood disturbance, and anxiety; I10 Essential (primary) hypertension; H91.90 Unspecified hearing loss, unspecified ear; I25.2 Old myocardial infarction; Z79.01 Long term (current) use of anticoagulants; Z95.5 Presence of coronary angioplasty implant and graft; Z87.891 Personal history of nicotine dependence; Z98.42 Cataract extraction status, left eye; Z98.41 Cataract extraction status, right eye; Z88.5 Allergy status to narcotic agent; Z88.8 Allergy status to other drugs, medicaments and biological substances; Z79.02 Long term (current) use of antithrombotics/antiplatelets
CPT/HCPCS: 36415; 80048; 83735; 85025; 97162; 97530; A9270; G0378